=== PATIENT | female | born 1945 | race Caucasian/White ===

== ENCOUNTER 2023-12-04 08:20 | Day surgery (SDC) | payer MEDICARE, BC, SELFPAY ==
[2023-11-26 10:56] VITALS: BMI 35.0
[2023-12-04] VITALS (22 sets, daily range): BP systolic 98–147; BP diastolic 59–99; BMI 35.3
[2023-12-04 08:55] LABS: INR 2.72; PT 29.2 Sec (11.4-14.6)
--- NOTE | 2023-12-04 14:05 | ITS.CL.ABL ---
Bonding Equipment Operator - Ablation
Ablation
Procedure Report:
ELECTROPHYSIOLOGY ABLATION STUDY
DATE:: December 04, 2023 REFERRING: Dr. Javier Argueta
INDICATION: Paroxysmal supraventricular tachycardia in the form of atrial fibrillation. Prior PVI with 28 mm cryoballoon in 2021
HISTORY: See H and P. As above
ANTIARRHYTHMIC DRUG: Atenolol only
PRE-PROCEDURE KETURAH: No atrial thrombus on intracardiac ultrasound
PRESENTING RHYTHM: Atrial fibrillation
'TIME-OUT': called and confirmed.
SEDATION/ANESTHESIA: provided via the anesthesia department using general anesthesia (LMA).
INTRAVENOUS/ARTERIAL ACCESS:
Right femoral venous - 8Fr
Left femoral venous - 8 Fr, 6 Fr
Ultrasound guidance for bilateral femoral vein access was utilized by me to obtain access with demonstration of normal anatomy
CHADS-VASC Score:
HAS-Bled Score
PROCEDURE:
1. A decapolar CS catheter was placed within the CS for mapping and pacing. This was also used as the reference catheter for the 3-D map. There was difficulty navigating the iliac IVC system with the contour sheath�dilator apparatus over a wire
so we upgraded the right femoral vein to a 16 Belgian short sheath and performed venography which demonstrated a patent iliac IVC system and no evidence of any IVC or iliac puncture. We then brought an Agilis over a wire through the 16 Belgian short
sheath up to the high right atrium and performed transseptal puncture as above. After making baseline electroanatomic voltage map we exchanged to the 12 Belgian Contour sheath utilizing a ProTrac wire and the sheath and dilator only to navigate the
iliac IVC transfer.
2. The intracardiac ultrasound catheter was positioned in the RA to identify the FO for targeting of transseptal puncture, assist in identification of the pulmonary vein ostia, monitoring pre and post ablation pulmonary vein flow velocities,
monitoring for 'bubble' formation during RF application as a sign of thermal injury, and to monitor for pericardial effusion during mapping and ablation procedure. Left atrial size, LV ejection fraction, and pulmonary vein flows were monitored
pre and post ablation procedure. The other valves were inspected and found to be free of significant regurgitation or stenosis.
3. Half of the calculated heparin bolus was administered prior to the first transeptal puncture. Transseptal puncture was performed to diagnose RA and LA pressure so that safety of LA mapping and ablation could be further assessed, and to access
the left atrium and pulmonary veins for mapping and ablation. This entailed advancing an 8 Fr SL-1 sheath with dilator into the superior vena cava and withdrawing both (monitoring intracardiac ultrasound, fluoroscopy and tip pressure) with the tip
oriented toward the atrial septum. The fossa ovalis was engaged (indicated by sudden displacement of the sheath tip as well as tenting of the fossa seen on intracardiac ultrasound). Left atrial access required a pass with the [place] needle
extended. Left atrial catheter position was confirmed by pressure monitoring (RA mean pressure 8 mm Hg and LA mean pressure 14 mm Hg), LA saturation (99%), as well as fluoroscopy. The sheath was advanced over the dilator and positioned in the
left atrium. The remainder of the calculated heparin bolus was administered and heparin was
infused to maintain ACT at 300 -350 seconds throughout the case.
4. RA pacing was performed via the proximal decapolar poles and LA pacing was performed via the distal decapolr poles.
5. A quadrapolar catheter was first positioned at the His position for His Bundle recording which was tagged via the 3-D Navex sytem, and then passed to the RVA for RV pacing and recording.
6. The multipolar catheter and the pulse select catheter were placed in each of the LIPV, LSPV, RSPV and the RIPV.
7. Next, a 3-D map was created using Navex. A 3-D reconstructed CT image was compared to the 3-D Navex map to assist in anatomic interpretation, mapping and ablation. The CT image and the NavX image were fused.
8. There was connection of the right inferior pulmonary vein at the inferior posterior region at the ostium. The right superior, left superior, and left inferior pulmonary veins were isolated in a wide [place] fashion. Baseline electroanatomic
voltage mapping demonstrated voltage abnormalities in the right inferior pulmonary vein and the posterior wall which were marked on the anatomic map and the pulsed light catheter was brought to the left atrium. The posterior wall was isolated and
the right inferior pulm vein was isolated utilizing the pulsed select catheter and the patient was cardioverted to sinus rhythm. 1 200 J synchronized biphasic shock restored sinus rhythm and entrance and exit block was confirmed in all 4 pulmonary
veins and electrical signs in the posterior wall we performed EP study. Burst pacing down to atrial refractoriness from the mitral annulus, Floropryl left atrium, coronary sinus and right atrium demonstrated no other inducible tachyarrhythmia.
Pacing was performed and atrial refractoriness of both atria and the coronary sinus.
9. Normal sinus node function was noted. [id number]-wm-[id number] sutures were placed to the femoral vein access sites once 50 mg protamine was given.
TOTAL FLOURO TIME: 14.3 minutes 123 mGy
TOTAL RF DURATION: 0 minutes
REVERSAL OF HEPARIN: 50 mg of protamine, slow IV administration
COMPLICATIONS:
None
Intracardiac US shows no pericardial effusion post ablation.
SUMMARY:
Complex left atrial mapping and ablation.
Isolation of the right inferior pulmonary vein and the left atrial posterior wall as above.
RECOMMENDATIONS:
1. Admit to monitored bed.
2. Resume anticoagulation
3. Continue atenolol
4. Consider same-day discharge or overnight observation pending clinical course
Copy to: Dr. Javier Argueta
[2023-12-04 15:17] LABS: ACT-LR - POC > 397 Seconds (116-155)
[2023-12-04 15:17] LABS: ACT-LR - POC > 397 Seconds (116-155)
--- NOTE | 2023-12-04 16:19 | PTCARENOTE ---
Dr Ly at pt bedside speaking to pt and pt's .
--- NOTE | 2023-12-04 16:20 | PTCARENOTE ---
Pt states she feels like she has to urinate but is only dribbling. Pt states she is feeling uncomfortable. Julianne Huertas FOXER made aware and ordered bladder scan and straight cath if needed. Pt bladder scanned for 581 ml urine. Pt straight cathed for
525ml clear yellow urine. Pt states she feels much better. Will continue to monitor.
[2023-12-04] MEDS: ANESTHETIC LOZENGE 1 LOZENGE PO (16:31)
--- NOTE | 2023-12-04 18:45 | PTCARENOTE ---
Received pt from recovery area. Ambulated to chair for dinner. B/L groin sites CDI. Call tellez within reach.
[2023-12-04] MEDS: COUMADIN 6 MG PO (19:49)
[2023-12-04] MEDS: OCUVITE SOFTGEL 1 CAP PO (19:49)
--- NOTE | 2023-12-05 01:39 | PTCARENOTE ---
Assumed care at 2300. Patient returning from the bathroom. B/L groin sites CDI, NSR on telemetry, VSS, call tellez in reach
[2023-12-05 03:53] VITALS: BP 138/72
[2023-12-05 05:00] LABS: INR 2.91; PT 30.8 Sec (11.4-14.6)
[2023-12-05 05:19] LABS: Blood Urea Nitrogen 25 mg/dl (7-17); Calcium 9.1 mg/dl (8.4-10.2); Carbon Dioxide 28 mmol/L (22-30); Chloride 103 mmol/L (98-107); Estimated Creatinine Clearance 60 ml/min; Glucose 142 mg/dl (70-99); Magnesium 2.3 mg/dl (1.6-2.3); Potassium 4.8 mmol/L (3.5-5.1); Sodium 140 mmol/L (135-145); eGFR > 60.00
[2023-12-05 05:57] LABS: Hematocrit 37.4 % (37.0-47.0); Hemoglobin 12.4 g/dL (12.0-16.0); Mean Corp Hgb Conc. 33.2 g/dL (33.0-37.0); Mean Corpuscular Hgb 31.6 pg (27.0-31.0); Mean Corpuscular Volume 95.2 fL (81.0-99.0); Mean Platelet Volume 11.4 fL (7.4-10.4); Platelet Count 212 10^3/uL (130-400); Red Blood Cell Count 3.93 10^6/uL (4.20-5.40); White Blood Cell Count 7.3 10^3/uL (4.8-10.8)
[2023-12-05 06:12] LABS: Hepatitis C Antibody Negative (Negative)
[2023-12-05 06:38] VITALS: BP 147/75
--- NOTE | 2023-12-05 08:54 | W.PN.CARDCBS ---
Addendum entered and electronically signed by Gee Ly MD 12/05/23 09:31:
patient seen and examined
agree with PAYROLL REPRESENTATIVE note and assessment
agree with PAYROLL REPRESENTATIVE plan
exam:
SR
aao x 3
non focal neurologically
remainder of exam per PAYROLL REPRESENTATIVE note
PCP: Darius Covington DO
CDY: Javier Argueta MD
Impression:
Symptomatic PAF prior PVI 09/2021
post redo PVI 12/04/23
HTN
HLD
LILLI/CPAP
GERD
Orthostatic hypotension/syncope
DDD TKR
nephrolithiasis stent and lithotripsy 2018
SUMMARY:
Complex left atrial mapping and ablation.
Isolation of the right inferior pulmonary vein and the left atrial posterior wall as above.
Plan:
post ablation feels good
groins stable
tele SR no sig ectopy
OAC with Coumadin goal INR 2-3
continue atenolol
reinforced compliance with CPAP, and wt loss
Activity restrictions reviewed
f/u Dr. Argueta in 1 mo
stable for home today
Original Note:
Today's Communication / Plan
-
post redo ablation
stable for d/c home
Impression / Plan
-
PCP: Darius Covington DO
CDY: Javier Argueta MD
Impression:
Symptomatic PAF prior PVI 09/2021
post redo PVI 12/04/23
HTN
HLD
LILLI/CPAP
GERD
Orthostatic hypotension/syncope
DDD TKR
nephrolithiasis stent and lithotripsy 2018
SUMMARY:
Complex left atrial mapping and ablation.
Isolation of the right inferior pulmonary vein and the left atrial posterior wall as above.
Plan:
post ablation feels good
groins stable
tele SR no sig ectopy
OAC with Coumadin goal INR 2-3
continue atenolol
reinforced compliance with CPAP, and wt loss
Activity restrictions reviewed
f/u Dr. Argueta in 1 mo
stable for home today
Progress Note - Radio Division Lieutenant
Subjective
Date of Service: December 05, 2023
no cp, sob
Objective
Labs:
12/05/23 04:10
12/05/23 04:10
Labs
Hgb 12.4 g/dL (12.0-16.0) 12/05/23 04:10
Hct 37.4 % (37.0-47.0) 12/05/23 04:10
Plt Count 212 10^3/uL (130-400) 12/05/23 04:10
PT 30.8 Sec (11.4-14.6) H 12/05/23 04:10
INR 2.91 12/05/23 04:10
Sodium 140 mmol/L (135-145) 12/05/23 04:10
Potassium 4.8 mmol/L (3.5-5.1) 12/05/23 04:10
BUN 25 mg/dl (7-17) H 12/05/23 04:10
Creatinine 0.9 mg/dL (0.6-1.0) 12/05/23 04:10
Glucose 142 mg/dl (70-99) H 12/05/23 04:10
Vital Signs and I&O:
Vital Signs
Temp Pulse Resp BP Pulse Ox
98.3 F 70 20 138/72 99
12/05/23 06:36 12/05/23 04:00 12/05/23 06:36 12/05/23 03:53 12/05/23 06:36
Vital Signs
Temp Pulse Resp BP Pulse Ox
98.3 F 70 20 138/72 99
12/05/23 06:36 12/05/23 04:00 12/05/23 06:36 12/05/23 03:53 12/05/23 06:36
Intake & Output
12/03/23 12/04/23 12/05/23 12/06/23
06:59 06:59 06:59 06:59
Intake Total 1000 / 1000
Output Total 525 / 525
Balance 475 / 475
Physical Exam
Physical Exam
NAD, AOX3
S1, S2, RRR
CTAB, non labored
SNTND bsx4
b/l groins c/d/i no HT, soft
[2023-12-05 09:03] VITALS: BP 159/73
[2023-12-05] MEDS: TENORMIN 50 MG PO (09:07)
[2023-12-05] MEDS: OCUVITE SOFTGEL 1 CAP PO (09:07)
[2023-12-05] MEDS: CRESTOR 5 MG PO (09:08)
[2023-12-05] MEDS: DITROPAN 5 MG PO (09:08)
[2023-12-05] MEDS: COZAAR 25 MG PO (09:10)
--- NOTE | 2023-12-05 09:27 | PTCARENOTE ---
Pt is approved for discharge. Notified Leanne Huertas NP of the following:
I was looking at discharge meds, we have been giving her 25 mg Cozaar and discharge orders are for 50 mg. She said that Dr Argueta decreased the cozaar to 25mg. If you want 50 mg, want me to give another 25 mg now? BP 159/73. Also, INR 2.9
today...continue 6 mg coumadin?
Pending response from MMD UNIT TEACHER.
--- NOTE | 2023-12-05 09:35 | CM ---
Reviewed chart. Met with Mrs. Kemp to review discharge plans. She states prior to admission she resides with her spouse in a [place] with thirteen steps to enter. She states prior to admission she was independent with ambulation and adls.
She states she has a CPAP Machine at home and no other DME in the home. She states she has a prescription plan. The discharge plan is to return home with her spouse when medically stable.
--- NOTE | 2023-12-05 09:48 | W.DS.TRANS ---
DC Summary - Ob/Gyn Nurse
-
Discharge Instructions:
Discharge Diagnosis/Procedures Afib post ablation
Diet Low Cholesterol
Driving Restrictions No driving for 24 hours
Instructions:
Stand-Alone Forms: DC Instructions- Cath/EP Lab
Changes to Home Medications: No
Discharge Medications:
DC Medications w/original date entered in FolderBoy
atenolol 25 mg tablet 50 mg PO DAILY 09/10/21
azelastine 137 mcg (0.1 %) nasal spray aerosol 2 spray intranasal BID 09/10/21
cholecalciferol (vitamin D3) 25 mcg (1,000 unit) tablet 1,000 units PO DAILY 09/10/21
oxybutynin chloride 10 mg tablet,extended release 24 hr 10 mg PO DAILY 09/10/21
rosuvastatin 5 mg tablet 5 mg PO DAILY 09/10/21
vitamins A,C,M-uotz-zdxkrl 4,296 mcg-226 mg-90 mg capsule (PreserVision AREDS) 1 cap PO BID 09/10/21
losartan 50 mg tablet 25 mg PO DAILY 11/20/23
warfarin 2 mg tablet 6 mg PO QPM 11/20/23
Home Medication Changes
Pending Results: No
--- NOTE | 2023-12-05 10:08 | PTCARENOTE ---
Pt will go home on 50 mg cozaar to start tomorrow AM per Aleksandar FRAZIER. Pt instructed to monitor and record her home bp and bring the BP log to Dr Argueta.
--- NOTE | 2023-12-05 11:39 | PTCARENOTE ---
Pt is discharged to home. IV site and telemetry pack removed. Discharge instructions given to the patient and her . Discharge instructions included the diagnosis, the rationale for the patient�s admission and the treatment provided during
this admission. Outpatient care after discharge was
discussed and all of the patient�s medical diagnoses were reviewed. Follow up appointments discussed and reviewed with the patient including the provider, address, and phone numbers of Dr. Argueta. Education included a review of warning signs and
symptoms that indicate that the patient must immediately seek medical care. Phone numbers for emergencies shown to both the patient and . Both were given information about when to call 911. Diet education was reinforced. An extensive
medication review was completed, and the next doses of all medications discussed. The teach back method was used to assess the patient�s understanding of the education. The pt remains stable, vital signs stable. Pt was able to ambulate to the
wheelchair and was transported by wheelchair to private vehicle.
== END 2023-12-05 12:30 | disposition home or self-care (01) ==
LOC: CATH 08:20
PROVIDERS: Nurse Practitioner Adult Health; ATTENDING PHYSICIAN Internal Medicine Cardiovascular Disease; FAMILY PHYSICIAN Family Medicine
DX: I48.0 Paroxysmal atrial fibrillation (principal); I10 Essential (primary) hypertension; R07.89 Other chest pain; R55 Syncope and collapse; G47.33 Obstructive sleep apnea (adult) (pediatric); E78.5 Hyperlipidemia, unspecified; Z79.01 Long term (current) use of anticoagulants
CPT/HCPCS: C1732; C1733; C1894; C1730; C1769; C1766; C1892; C1759; 76937; 80048; 83735; 85027; 85347; 85610; 86803; 93005; 93656; Q9967

== ENCOUNTER → 2024-11-03 08:23 | Outpatient (REF) | payer MEDICARE, BC, SELFPAY ==
--- NOTE | 2024-10-26 08:46 | WATCHMAN ---
Watchman
Wathcman Procedure
Referred by:: Hui Gil/Gee Ly
Date of Referral:: 10/19/24
[id number] Score
Age in Years (65=0, 65-74=1, >/=75=2): > or = 75
Sex (Female=+1): Female
Congestive Heart Failure History (Yes=+1): No
Hypertension History (Yes=+1): Yes
Stroke/TIA/Thromboembolism History (Yes=+2): No
Vascular Disease History (Yes=+1): No
Diabetes Mellitus (Yes=+1): No
Score: 4
Anticoagulation Recommendations: Recommend anticoagulation (as validated in nonvalvular fib)
HASBLED Score
Hypertenstion (uncontrolled >160mmHG systolic): No
Renal disease (dialysis, transplant, Cr >2.26mg/dL or >200umol/L): No
Liver disease (cirrhosis or bilirubin >2x normal w/ AST/ALT/AP >3x normal: No
Stroke history: No
Prior major bleeding or predisposition to bleeding: Yes
Labile INR(unsable/high INRs,time in therapeutic range <60%): No
Age >65: Yes
Medication usage predisposing to bleeding(ASA, NSAIDS): No
Alcohol use (>/= 8 drinks/week): No
Score: 2
Risk: Anticoagulation can be considered, however patient does have moderate risk for major bleeding (2/100 patient-years)
Physician Visits
Talent Development Manager:: Aliyah
Date of Visit:: 10/19/24
Primary Roller Helper:: Javier Argueta
Date of Visit:: 08/25/24
PCP:: Darius Covington
Plan
Plan:: 10/19/2024: Patient seen in consult by YEHUDA [place] and Dr. Ly to discuss watchman. Order CT Watchman scan.
10/25/2024: Spoke to patient. Obtained recent blood work from hospital admission at [facility]. Assisted with scheduling CT Watchman for 11/23/2024.
== END ==
LOC: RAD 08:23
PROVIDERS: ATTENDING PHYSICIAN Internal Medicine Cardiovascular Disease; FAMILY PHYSICIAN Family Medicine
DX: I48.0 Paroxysmal atrial fibrillation (principal)
CPT/HCPCS: 75572; Q9967

== ENCOUNTER 2024-12-14 05:53 | Inpatient (IN) | payer MEDICARE, BC, SELFPAY ==
[2024-12-09 11:05] VITALS: BMI 36.1
[2024-12-09 11:57] LABS: INR 2.14; PT 24.4 Sec (11.4-14.6)
[2024-12-09 12:08] LABS: ALT (SGPT) 26 U/L (0-35); AST (SGOT) 30 U/L (14-36); Albumin 4.5 g/dl (3.5-5.0); Alkaline Phosphatase 55 U/L (38-126); Blood Urea Nitrogen 20 mg/dl (7-17); Calcium 9.9 mg/dl (8.4-10.2); Carbon Dioxide 32 mmol/L (22-30); Chloride 105 mmol/L (98-107); Estimated Creatinine Clearance 66 ml/min; Glucose 78 mg/dl (70-99); Sodium 142 mmol/L (135-145); Total Bilirubin 1.4 mg/dl (0.2-1.3); Total Protein 7.1 g/dl (6.3-8.2); eGFR > 60.00
[2024-12-09 12:20] LABS: % Basophils 0.9 % (0-2); % Eosinophils 1.6 % (0-6); % Immature Granulocytes 0.3 % (0-0.5); % Lymphocytes 18.7 % (20.5-51.1); % Neutrophils 68.5 % (42.2-75.2); Absolute Basophils 0.1 10^3/uL (0-0.2); Absolute Eosinophils 0.2 10^3/uL (0-0.7); Absolute Lymphocytes 1.8 10^3/uL (1.2-3.4); Absolute Monocytes 0.9 10^3/uL (0.1-0.6); Absolute Neutrophils 6.4 10^3/uL (1.4-6.5); Hematocrit 43.5 % (37.0-47.0); Hemoglobin 14.5 g/dL (12.0-16.0); Mean Corp Hgb Conc. 33.3 g/dL (33.0-37.0); Mean Corpuscular Hgb 31.4 pg (27.0-31.0); Mean Corpuscular Volume 94.2 fL (81.0-99.0); Mean Platelet Volume 11.3 fL (7.4-10.4); Nucleated Red Blood Cells % 0 %; Platelet Count 315 10^3/uL (130-400); Red Blood Cell Count 4.62 10^6/uL (4.20-5.40); Red Cell Dist. Width 14.8 % (11.5-14.5); White Blood Cell Count 9.4 10^3/uL (4.8-10.8)
[2024-12-14] VITALS (15 sets, daily range): BP systolic 109–163; BP diastolic 66–117
[2024-12-14 07:14] LABS: INR 2.23; PT 24.8 Sec (11.4-14.6)
--- NOTE | 2024-12-14 09:22 | ITS.CL.PN ---
Wire Photo Operator - Procedure Note
Procedure
Procedure Note:
Watchman implantation report
Date: December 14, 2024
Referring: Dr. Gee Kruse
History: Recurrent atrial arrhythmia which is relatively asymptomatic post prior ablation therapy who now has had recurrent falls including recent head trauma a few weeks ago. She presents for elevated stroke risk and elevated bleeding risk with
ongoing arrhythmias for watchman implantation
Watchman implantation report
After informed consent and patient safety timeout the patient was sedated under general anesthesia by the anesthesiology service. Verapamil 5 mg was given for heart rate control. Under direct ultrasound guidance the right femoral vein was accessed
and Dr. Beard perform transseptal puncture utilizing the Watchman sheath with a radiofrequency pigtail wire first placed in the SVC with the wire withdrawn and under KETURAH guidance the sheath was withdrawn to the interatrial fossa and the
radiofrequency wire crossed in the left atrium. The sheath was brought over the wire with direct left atrial pended access. Heparin was given for an ACT greater than 300 seconds.
The pigtail catheter engage the left atrial pended demonstrating a windsock morphology and a 22 mm ostium. Transesophageal echo confirmed no left atrial appendage thrombus or pericardial fusion pre and post procedure. Venogram was performed
demonstrating the anatomy and the ostium of the left atrial appendage which was measured and initially a 27 mm device was performed. Watchman implantation was performed by Dr. Ly. Initial attempt with a 27 mm device delivered the device
ostially but there was poor anchor on the ligament of Willie side of the device and tug test pulled the device back despite engaging the very distal tip of the left atrial appendage. As such the 27 mm device was removed from the body and a 31 mm
device was delivered to the distal tip of the appendage which required clockwise torque. The 31 device was able to engage the entirety of the posterior left atrial appendage with anchor engagement and a slightly prominent mitral shoulder. 22 to
28% compression was noted in the device met Pass criteria. As such the device was delivered and sheaths and catheters were withdrawn to the right atrium and heparin was stopped with protamine given. Sheath was removed with a [id number]-[id number]-qjewm suture
to the right femoral vein and the patient tolerated the procedure well.
Impression:
31 mm device delivery as above
Recommendations:
She will continue oral anti-coagulation for 3 months and will increase her verapamil to 120 mg twice daily for elevated heart rate
Copy: Dr. Gee Kruse
--- NOTE | 2024-12-14 09:28 | WATCHMAN.MD ---
Watchman Implant
-
ELECTROPHYSIOLOGY/INTERVENTIONAL PROCEDURE REPORT
Date of Procedure: December 14, 2024
Referring: Gee Kruse
Assisting Physician: Gee Ly
PROCEDURES:
1. Left atrial appendage occlusion device using 31 mm WATCHMAN FLX device
2. Ultrasound-guided right common femoral venous access
INDICATION: High [id number] warranting intermediate school teacher full anticoagulation but inability to do this given his bleeding risk/bleeding complication due to recurrent falls.
ACCESS: Right common femoral vein, 16Fr sheath under US guidance using micropunture kit.
Ultrasound was utilized for vascular access. The right femoral vein was visualized under ultrasound, and the vessels was patent. An image was stored permanently in the patient's medical record. Under direct ultrasound guidance, an 8 [place]
sheaths was inserted into the right common femoral vein, using a micropuncture kit through a modified Seldinger technique. We then upsized after dilating the site to a 16 [place] sheath
HEMODYNAMICS : (mmHg)
LA Pressure: 20
PROCEDURE REPORT:
After informed consent and patient safety 'Timeout' the patient was intubated and sedated by the anesthesiology service. Under ultrasound guidance, the right femoral vein was accessed by Dr. Gee Ly for transseptal puncture. Concomitant
transesophageal echocardiogram was performed by Dr. Naveen Zepeda
Baseline KETURAH images revealed a trace pericardial effusion.
After ruling out a left atrial appendage thrombus, the patient was heparinized for an ACT between 350-400 seconds and under KETURAH and intracardiac ultrasound guidance transseptal puncture was performed by Dr. Jolie Beard using the [place] VersaCross
trans-septal system in a mid position on the inferior-superior axis and a mid position on the anterior-posterior axis. Left atrial pressure was 20 millimeters mercury.
Once transseptal puncture was performed over the [place] Versacross pigtail 0.035 wire, which was parked in the body of left atrial appendage, the [email or web address] access double curve sheath was advanced over this into the left atrium. A 5 [place] pigtail
catheter was placed into the left atrial appendage and an appendage gram was performed using intravenous contrast dye demonstrating a broccoli shape anatomy that was suitable likely for a 27 mm WATCHMAN FLX device. We initially attempted a 27 mm
device and had to reposition it a couple of times. Eventually when we left the positioning, upon tug test the device moved back proximally a decent distance and therefore we decided to upsize the device to 31 millimeter device.
After appropriately prepping the device, Dr. Gee Ly successfully deployed a 31 mm WATCHMAN FLX device. Device showed excellent positioning with no leaks post device deployment. 22 to 28 % compression was noted in the device after deployment. A
'tug-test' was performed demonstrating stability of the device. Given PASS criteria were met, the device was then released successfully by Dr. Gee Ly
Post procedure, KETURAH imaging demonstrated no new or worse pericardial effusion. Sheaths and catheters were removed from the left atrium and heparin was reversed using protamine. Catheters removed from the femoral veins with vhxhdq-va-aigep suture
applied. The patient tolerated the procedure well.
RADIATION SUMMARY: Fluoro Time (min): 10.3, Dose (mGy): 47.9, DAP (Gy.cm2) : 5.18
Closure Device: Figure of 8 suture
CONCLUSIONS
1. Successful deployment of 31 mm WATCHMAN FLX device under KETURAH guidance.
RECOMMENDATIONS
1. Plan for full anticoagulation with warfarin daily for the next 3 months.
2. 3-month KETURAH post procedure to assess stability of device and rule out any colin-device leaks. If no issues noted on the 3-month KETURAH post watchman placement such as a greater than 5 mm leak, plan would be to stop anticoagulation at that point and
continue daily baby aspirin lifelong.
3. Figure of 8 suture removal prior to discharge.
Copy to: Dr. Gee Kruse
Jolie Beard MD, [facility], [facility]
[2024-12-14 13:01] LABS: ACT-LR - POC > 397 Seconds (116-155)
[2024-12-14] MEDS: CALAN EXTENDED RELEASE 240 MG PO (13:24)
== END 2024-12-14 14:35 | disposition home or self-care (01) | DRG 274 ==
LOC: CATH-IN 05:53
PROVIDERS: Internal Medicine Cardiovascular Disease; ADMITTING PHYSICIAN Internal Medicine Cardiovascular Disease; REFERRING PHYSICIAN Internal Medicine Interventional Cardiology
PROC: 02L73DK Occlusion of Left Atrial Appendage with Intraluminal Device, Percutaneous Approach (ICD-10-PCS; 2024-12-14)
PROC: B24BZZ4 Ultrasonography of Heart with Aorta, Transesophageal (ICD-10-PCS; 2024-12-14)
DX: I48.91 Unspecified atrial fibrillation (principal); Z00.6 Encounter for examination for normal comparison and control in clinical research program; Q21.12 Patent foramen ovale; I34.0 Nonrheumatic mitral (valve) insufficiency; I34.81 Nonrheumatic mitral (valve) annulus calcification; G47.33 Obstructive sleep apnea (adult) (pediatric); I10 Essential (primary) hypertension; I48.92 Unspecified atrial flutter; K21.9 Gastro-esophageal reflux disease without esophagitis; K57.30 Diverticulosis of large intestine without perforation or abscess without bleeding; Z79.899 Other long term (current) drug therapy
CPT/HCPCS: 33340; 36415; 80053; 85025; 85610; 86850; 86900; 86901; 87070; 93005; 93355; C1769; C1892; C1894; Q9967

== ENCOUNTER → 2025-03-09 09:49 | Outpatient (REF) | payer MEDICARE, BC, SELFPAY | LOC: SDSPAT 09:49 | PROVIDERS: ATTENDING PHYSICIAN Internal Medicine Cardiovascular Disease; FAMILY PHYSICIAN Family Medicine; OTHER PHYSICIAN Internal Medicine Cardiovascular Disease | DX: I48.0 Paroxysmal atrial fibrillation (principal) | CPT/HCPCS: 93005 ==

== ENCOUNTER 2025-03-18 06:45 | Day surgery (SDC) | payer MEDICARE, BC, SELFPAY ==
[2025-03-09 09:58] VITALS: BMI 35.6
--- NOTE | 2025-03-09 13:11 | HPS.HSE ---
Family Physician
-
Family Physician: Darius Covington
Chief Complaint
-
Paroxysmal atrial fibrillation.
History of Present Illness
The patient is a 76-year-old female presenting today for paroxysmal atrial fibrillation. The patient is noted to have an 18 year history of waxing and waning atrial fibrillation. She reports a history of chest fullness as well as shortness
of breath secondary to this diagnosis. She previously underwent pulmonary vein isolation in September 2021 with a redo ablation in November 2023. She had also undergone a cardioversion in December 2023 for further arrhythmia management. She is on current
pharmacological therapy with Verapamil. Previous Atenolol was ineffective in achieving optimal heart rates and the patient reported feeling overall poorly on previous Nadolol. She does report compliance with Warfarin for oral anticoagulation due to
a [id number] of 4. As of more recent, she has had recurrent falls secondary to her ambulatory dysfunction. Given her elevated risk of thromboembolic events as well as bleeding events while remaining on oral anticoagulation, she underwent a
recommended Watchman implant on December 14, 2024. She reportedly tolerated the procedure well. She will now undergo her 3 month post-Watchman transesophageal echocardiogram to assess the stability of her device. She denies any current complaints today
such as chest pain, shortness of breath at rest, palpitations, nausea, vomiting, diarrhea, lightheadedness, dizziness, cough, sore throat, or fever.
Medical History
Past Medical History
Past Medical History: Reports Other
Additional Past Medical History:
1. Paroxysmal atrial fibrillation, status post pulmonary vein isolation, 09/2021 and 11/2023, cardioversion, 12/2023, and Watchman implant 11/2024; pharmacological therapy with Verapamil and oral anticoagulation with Warfarin.
2. Ill-defined, wide-complex tachycardia.
3. Hypertension.
4. Hyperlipidemia.
5. Moderate, nonobstructive coronary artery disease based off coronary artery calcium score.
6. History of recurrent syncope, likely orthostatic and vagally mediated.
7. Mild-moderate valvular disease.
8. Obstructive sleep apnea, compliant with CPAP (setting 4).
9. GERD.
10. Dysphagia and odynophagia.
11. Hiatal hernia.
12. Colon polyps.
13. Diverticulosis.
14. Nephrolithiasis.
15. Pancreatic cyst.
16. Remote migraines.
17. Ambulatory dysfunction with history of falls.
18. Lumbar degenerative disc disease.
19. Sciatica.
20. Osteoarthritis, status post bilateral total knee arthroplasty 2005.
21. Overactive bladder with urinary incontinence.
22. Macular degeneration.
23. Obesity, BMI 35.6.
Past Surgical History: Reports Other
Additional Past Surgical History:
1. Pulmonary vein isolation x2.
2. Cardioversion.
3. Watchman implant.
4. Bilateral total knee arthroplasty.
5. Renal stent.
6. Multiple laser lithotripsies.
7. Right heel spur excision.
8. Bilateral carpal tunnel release.
9. .
10. Multiple epidural steroid injections.
11. Bilateral cataract extraction.
12. Multiple colonoscopies.
13. Endoscopy x2.
Social History
Tobacco: Non-smoker
Alcohol: None
Personal:
Living: Other (The [place]
Family History
Family History: Not pertinent
Allergies / Home Medications
Allergy/Medication List:
MEDICATIONS:
1. ipratropium bromide 2 sprays intranasal three times a day.
2. PreserVision 1 capsule p.o. twice a day.
3. Verapamil 120 mg p.o. daily.
4. Rosuvastatin Calcium 5 mg p.o. daily.
5. Blink Tears 2 drops both eyes daily.
6. Oxybutynin Chloride 10 mg p.o. daily.
7. Warfarin 4 mg p.o. on Sundays
8. Warfarin 6 mg p.o. every day but Sundays.
9. Vitamin D3 1000 units p.o. daily.
10. Azelastine 2 sprays nasal twice a day.
ALLERGIES: No known allergies.
Review of Systems
-
A 12 point ROS was completed and negative except as noted: Yes
Physical Exam
Vital Signs
Blood pressure 149/66. Heart rate 65. Respirations 18. Pulse ox 99% on room air.
Height 5 feet, 5 inches. Weight 97.1. BMI 35.6.
Physical Exam
General: Well Developed, Well Nourished and No Apparent Distress
HEENT: NormoCephalic, Moist mucous membranes, Atraumatic and PERRLA
Respiratory: Clear
Cardiac: Irregular Rhythm
GI: Soft, Non Tender, Non Distended and Other (Obese. )
Musculoskeletal: No Edema and Other (The patient ambulates with a single point cane. )
Skin: Warm and Dry
Neuro: AO x 3 and Nonfocal/grossly intact
Laboratory Results
-
EKG 03/09/2025: Normal sinus rhythm. Nonspecific ST abnormality.
Transesophageal echocardiogram 12/14/2024: Normal left ventricular chamber size. Normal left ventricular systolic function. Normal regional wall motion. Mild concentric left ventricular hypertrophy. Left ventricular ejection fraction is 55%. Normal
right ventricular size and function. Moderately dilated left atrium. Mildly dilated right atrium. Intra-Op KETURAH Imaging for Watchman: Initial images showed no spontaneous contrast. No left atrial appendage thrombus. CODY diameters: 0:2.21cm 45:2.01cm
90:1.87cm 135:.1.72cm. Transseptal puncture was seen on bicaval views. KETURAH guidance to the left atrial appendage was performed. Device was well seated and anchored well on tug test. The size of the device post deployment is: 0: 2.41cm 45: 2.24cm
90:2.24cm 135: 2.32cm. The compression was appropriate for device size. There was no flow around the device by color flow Doppler imaging. Mild to moderate mitral regurgitation. There was a small residual PFO present by color-flow Doppler after the
procedure.
Impression/Plan
-
IMPRESSION/PLAN:
1. Paroxysmal atrial fibrillation: The patient is 3 months post-Watchman and is in need of a transesophageal echocardiogram with Dr. Darwin Zepeda on 03/18/2025. The benefits and risks of the procedure have been explained to the patient. The
patient understands these risks and wishes to proceed. She is aware to continue her Warfarin pre-operatively. Should her Watchman implant be well seated and without significant leaks, she will likely transition off of Warfarin and onto Plavix and
Aspirin or just Aspirin alone.
[2025-03-18 08:10] LABS: INR 1.71; PT 20.3 Sec (11.4-14.6)
== END 2025-03-18 10:17 | disposition home or self-care (01) ==
LOC: CATH 06:45
PROVIDERS: ATTENDING PHYSICIAN Internal Medicine Cardiovascular Disease; FAMILY PHYSICIAN Family Medicine; OTHER PHYSICIAN Internal Medicine Cardiovascular Disease
DX: I48.91 Unspecified atrial fibrillation (principal); Z95.818 Presence of other cardiac implants and grafts; Q24.8 Other specified congenital malformations of heart; E66.9 Obesity, unspecified; Z68.35 Body mass index [BMI] 35.0-35.9, adult; E78.5 Hyperlipidemia, unspecified; I08.1 Rheumatic disorders of both mitral and tricuspid valves; G47.33 Obstructive sleep apnea (adult) (pediatric); I25.10 Atherosclerotic heart disease of native coronary artery without angina pectoris; I48.0 Paroxysmal atrial fibrillation; I10 Essential (primary) hypertension; M19.90 Unspecified osteoarthritis, unspecified site; N32.81 Overactive bladder; Z79.01 Long term (current) use of anticoagulants; Z79.899 Other long term (current) drug therapy; Z86.0100 Personal history of colon polyps, unspecified; Z87.442 Personal history of urinary calculi; Q21.12 Patent foramen ovale; Z91.81 History of falling; Z96.653 Presence of artificial knee joint, bilateral; Z98.41 Cataract extraction status, right eye; Z98.42 Cataract extraction status, left eye; K21.9 Gastro-esophageal reflux disease without esophagitis; K44.9 Diaphragmatic hernia without obstruction or gangrene; R13.10 Dysphagia, unspecified; K86.2 Cyst of pancreas; G43.909 Migraine, unspecified, not intractable, without status migrainosus; M51.369 Other intervertebral disc degeneration, lumbar region without mention of lumbar back pain or lower extremity pain; M54.30 Sciatica, unspecified side; H35.30 Unspecified macular degeneration
CPT/HCPCS: 93312; 93320; 93325; 85610